=== PATIENT | female | born 1940 | race Caucasian/White ===

== ENCOUNTER 2017-10-01 07:55 | Emergency (ER) | payer MEDICARE ==
[~2017-10-01] VITALS: Ht 157.5 cm; Wt 42.0 kg
[2017-10-01 07:59] VITALS: BP 126/70
[2017-10-01] MEDS ORDERED: PRED10TA23 PO (08:40)
[2017-10-01] MEDS ORDERED: predniSONE 20 mg tablet PO ONE (08:40)
== END 2017-10-01 08:57 | disposition home or self-care (01) ==
LOC: ER 07:55
DX: T78.40XA Allergy, unspecified, initial encounter (principal); L30.9 Dermatitis, unspecified; I48.91 Unspecified atrial fibrillation; Z95.0 Presence of cardiac pacemaker; Z60.2 Problems related to living alone; Z79.899 Other long term (current) drug therapy; X58.XXXA Exposure to other specified factors, initial encounter
CPT/HCPCS: 99283; J7512